=== PATIENT | male | born 1975 | race Caucasian/White ===

== ENCOUNTER 2020-09-02 16:23 | Emergency (ER) | payer OTHER, SELFPAY ==
--- NOTE | 2020-09-02 16:31 | DI.RAD.S_ITS ---
PROCEDURE: XR CHEST 1V INDICATIONS: Possible stroke TECHNIQUE: One view of the chest was acquired. COMPARISON: None. FINDINGS: Surgical changes and devices: None. Lungs and pleura: Lungs are clear. No pleural effusions or pneumothorax. Mediastinum: Mediastinal contours appear normal. Heart size is normal. Bones and chest wall: No suspicious bony lesions. Overlying soft tissues appear unremarkable. IMPRESSION: No acute process. Dictated by: Kenneth Shrestha M.D. on 09/02/2020 at 16:04 Approved by: Kenneth Shrestha M.D. on 09/02/2020 at 16:04
--- NOTE | 2020-09-02 16:31 | DI.CT.S_ITS ---
PROCEDURE: CT HEAD/BRAIN WO CON INDICATIONS: Facial weakness TECHNIQUE: Noncontrast 4.5 mm thick angled axial sections acquired from the foramen magnum to the vertex, with coronal and sagittal reformats. For radiation dose reduction, the following was used: automated exposure control, adjustment of mA and/or kV according to patient size. COMPARISON: None. FINDINGS: Image quality: Excellent. CSF spaces: Basal cisterns are patent. No extra-axial fluid collections. Ventricles are normal in size and shape. Brain: No midline shift. No intracranial masses or hemorrhage. Gee-white matter interface is normal. Skull and face: Calvarium and visualized facial bones are intact, without suspicious lesions. Sinuses: Visualized sinuses and mastoids are clear. IMPRESSION: No acute intracranial abnormality. Dictated by: Kenneth Shrestha M.D. on 09/02/2020 at 16:03 Approved by: Kenneth Shrestha M.D. on 09/02/2020 at 16:03
[2020-09-02 16:42] VITALS: BP 186/81; PULSE 83; RESP 16; O2SAT 99; BMI 27.8
[2020-09-02 16:45] LABS: Add Manual Diff / Slide Review NO; Basophils Absolute Auto 0 /uL (0-100); Basophils Percent Auto 0.7 % (0-2); Eosinophils Absolute Auto 0 /uL (0-450); Eosinophils Percent Auto 0.9 % (2-4); Hemoglobin 16.1 g/dL (13.5-17.5); Lymphocytes Absolute Auto 1500 /uL (1100-4500); Lymphocytes Percent Auto 29.5 % (25-40); Mean Corpuscular HGB Conc 33.6 % (30-36); Mean Corpuscular Hemoglobin 28.3 PG (26-34); Mean Corpuscular Volume 84.3 fL (80-100); Monocytes Absolute Auto 300 /uL (0-900); Neutrophils Absolute Auto 3200 /uL (1500-7000); Neutrophils Percent Auto 62.9 % (50-75); Platelet Count 251 X10^3/uL (150-400); Red Cell Distribution Width 13.6 % (11.6-14.8); White Blood Cell Count 5.2 X10^3/uL (4.5-11.0)
[2020-09-02 16:52] LABS: Prothrombin Time 10.9 SECONDS (10.1-12.7)
[2020-09-02 16:54] LABS: PTT Partial Thromboplastin Tim 36 SECONDS (26.4-36.2)
[2020-09-02 16:56] LABS: Alanine Aminotransferase 39 IU/L (<50); Albumin 4.4 g/dL (3.5-5.0); Albumin Globulin Ratio 1.5 (1.0-2.8); Alkaline Phosphatase 88 U/L (38-126); Aspartate Aminotransferase 33 IU/L (17-59); BUN Creatinine Ratio 11.7 (6-22); Bilirubin Total 0.6 mg/dL (0.2-1.3); Blood Urea Nitrogen 9 mg/dL (9-20); Calcium 8.9 mg/dL (8.4-10.2); Carbon Dioxide 26 mmol/L (22-32); Chloride 101 mmol/L (98-107); Creatine Kinase 57 U/L (55-170); Estimated Glomerular Filt Rate > 60.0 mL/min (>60); Glucose 303 mg/dL (70-100); HEMOLYSIS 16 (0-50); Potassium 3.5 mmol/L (3.4-5.1); Sodium 135 mmol/L (137-145); Total Protein 7.4 g/dL (6.3-8.2)
[2020-09-02 17:01] VITALS: PULSE 88; RESP 20; O2SAT 96
[2020-09-02 17:08] LABS: Troponin I < 0.012 ng/mL (0.01-0.034)
--- NOTE | 2020-09-02 17:17 | ED_ITS ---
HPI - Neuro Symptoms/Deficit General Chief Complaint: Neuro Symptoms/Deficit Stated Complaint: left side of face not working right Time Seen by Provider: 09/02/20 16:41 Source: patient Mode of arrival: Ambulatory Limitations: no limitations History of Present Illness HPI Narrative: Patient is a 44-year-old insulin-dependent diabetic here for evaluation of weakness the left side of his face. He states that the symptoms started approximately 2 days ago. He is unsure what he was doing when the symptoms started. He does not think things have changed or worsened since then. He is have some watering of his left eye. No upper or lower extremity symptoms. No vision changes. No fevers. On Anticoagulants: No Related Data Previous Rx's Medication Instructions Recorded acyclovir 400 mg PO QID 10 Days #40 tab 09/02/20 prednisone 40 mg PO DAILY 7 Days #14 tab 09/02/20 Review of Systems Constitutional Constitutional: Denies chills, Denies fever(s), Denies frequent falls and Denies headache(s) Eyes Eyes: Denies change in vision Comments: Watering left eye ENT Ears, Nose, Mouth, and Throat: Denies vertigo, Denies headache(s), Denies sinus pain and Denies sore throat Cardiovascular Cardiovascular: Denies chest pain, Denies syncope, Denies rapid heart rate, Denies irregular heart rhythm and Denies dyspnea Respiratory Respiratory: Denies cough and Denies dyspnea Gastrointestinal Gastrointestinal: Denies abdominal pain, Denies nausea and Denies vomiting Genitourinary Genitourinary: Denies dysuria Genitourinary: Denies dysuria Musculoskeletal Musculoskeletal: Denies arthralgias and Denies myalgias Integumentary/Breasts Skin/Breast: Denies lesions and Denies rash Neurologic Neurologic: Denies behavioral changes, Denies confusion, Denies vertigo, Denies syncope, Denies frequent falls and Denies headache(s) Comments: Drooping left side of face Psychiatric Psychiatric: Denies behavioral changes and Denies confusion Hematologic/Lymphatic On Anticoagulants: No Allergic/Immunologic Allergic/Immunologic: Denies urticaria Patient History Medical History Diabetes tobacco type: smokeless tobacco alcohol intake frequency: 0-2 drinks per day Substance Use Type: does not use Exam Initial Vital Signs Initial Vital Signs: Vital Signs Pulse Rate 83 09/02/20 16:42 Respiratory Rate 16 09/02/20 16:42 Blood Pressure 186/81 H 09/02/20 16:42 Pulse Oximetry 99 09/02/20 16:42 Const General: cooperative and comfortable Limitations: mental status not altered HENMT Head: normal to inspection and normocephalic Eyes General: appearance normal, both eyes and all related structures Visual Maldonado: normal visual maldonado by confrontation Resp Effort & Inspection: normal respiratory effort Auscultation: clear to auscultation bilaterally Cardio Rate: regular rate Rhythm: regular rhythm GI Inspection: non-distended Palpation: soft Skin Lesions: no lesions Rashes: no rashes Neuro General: patient alert, patient awake and patient oriented x3 Cognition: normal cognition Speech: speech normal Gait: normal gait Motor: muscle tone normal throughout Sensory Exam: no sensory deficits noted Other: Cranial nerve exam is unremarkable except that he does have a complete left-sided facial palsy. Extrem General: normal to inspection, normal exam except as noted and No edema Psych Appearance: grossly normal and well kempt Scores GCS Noemy coma scale verbal response: Orientated [place] coma scale motor response: Obey commands Course Orders Ordered: ED Orders 09/02/20 16:31 CT head/brain wo con Stat XR chest 1V Stat EKG-12 Lead Stat 09/02/20 16:37 Complete Blood Count AUTO DIFF Stat Comprehensive Metabolic Panel Stat Partial Thromboplastin Time Stat Prothrombin Time INR Stat Troponin & CK Cardiac Panel Stat Vital Signs Vital signs: Vital Signs - 8 hr 09/02/20 16:42 09/02/20 17:01 09/02/20 17:30 Pulse Rate 83 88 86 Respiratory Rate 16 20 18 Blood Pressure 186/81 H 143/89 H Pulse Oximetry 99 96 96 MDM - Neuro Symptoms/Deficit Lab Data Attestation: I reviewed the patient's lab results. Result diagrams: 09/02/20 16:37 09/02/20 16:37 Labs: Lab Results 09/02/20 09/02/20 09/02/20 Range/Units 16:37 16:37 16:37 WBC 5.2 (4.5-11.0) X10^3/uL RBC 5.70 (4.5-5.9) X10^6/uL Hgb 16.1 (13.5-17.5) g/dL Hct 48.0 (41-53) % MCV 84.3 (80-100) fL MCH 28.3 (26-34) PG MCHC 33.6 (30-36) % RDW 13.6 (11.6-14.8) % Plt Count 251 (150-400) X10^3/uL Neut % (Auto) 62.9 (50-75) % Lymph % (Auto) 29.5 (25-40) % [place] % (Auto) 6.0 (3-14) % Eos % (Auto) 0.9 L (2-4) % Baso % (Auto) 0.7 (0-2) % Neut # (Auto) 3200 (1235-8814) /uL Lymph # (Auto) 1500 (1663-1423) /uL [place] # (Auto) 300 (0-900) /uL Eos # (Auto) 0 (0-450) /uL Baso # (Auto) 0 (0-100) /uL PT 10.9 (10.1-12.7) SECONDS INR 1.0 (0.9-1.3) APTT 36 (26.4-36.2) SECONDS Sodium 135 L (137-145) mmol/L Potassium 3.5 (3.4-5.1) mmol/L Chloride 101 (98-107) mmol/L Carbon Dioxide 26 (22-32) mmol/L BUN 9 (9-20) mg/dL Creatinine 0.77 (0.66-1.25) mg/dL Estimated GFR > 60.0 (>60) mL/min BUN/Creatinine Ratio 11.7 (6-22) Glucose 303 H (70-100) mg/dL Calcium 8.9 (8.4-10.2) mg/dL Total Bilirubin 0.6 (0.2-1.3) mg/dL AST 33 (17-59) IU/L ALT 39 (<50) IU/L Alkaline Phosphatase 88 (38-126) U/L Total Creatine Kinase 57 (55-170) U/L CK-MB (CK-2) TNP CK-MB (CK-2) Rel Index TNP Troponin I < 0.012 (0.01-0.034) ng/mL Total Protein 7.4 (6.3-8.2) g/dL Albumin 4.4 (3.5-5.0) g/dL Globulin 3.0 (1.7-4.1) g/dL Albumin/Globulin Ratio 1.5 (1.0-2.8) Point of Care Testing Glucose POC 256 Imaging Data Chest x-ray: Radiologist's Impression: [address] [id number] ReportSigned Patient: Tavo Montalvo IMR#: [id number]: 1975Acct:[id number]/Sex: 44 / MDate of Service: 09/02/20Loc: EDAccession Number: [id number] Procedure: XR chest 1V Ordering Provider: Conrad Brady D.O. PROCEDURE: XR CHEST 1V INDICATIONS: Possible stroke TECHNIQUE: One view of the chest was acquired. COMPARISON: None. FINDINGS: Surgical changes and devices: None. Lungs and pleura: Lungs are clear. No pleural effusions or pneumothorax. Mediastinum: Mediastinal contours appear normal. Heart size is normal. Bones and chest wall: No suspicious bony lesions. Overlying soft tissues appear unremarkable. IMPRESSION: No acute process. Dictated by: Kenneth Shrestha M.D. on 09/02/2020 at 16:04 Approved by: Kenneth Shrestha M.D. on 09/02/2020 at 16:04 CT scan - head: Radiologist's Impression: [address] [id number] Scan ReportSigned Patient: Tavo Montalvo IMR#: [id number]: 1975Acct:[id number]/Sex: 44 / MDate of Service: 09/02/20Loc: EDAccession Number: [id number] Procedure: CT head/brain wo con Ordering Provider: Conrad Brady D.O. PROCEDURE: CT HEAD/BRAIN WO CON INDICATIONS: Facial weakness TECHNIQUE: Noncontrast 4.5 mm thick angled axial sections acquired from the foramen magnum to the vertex, with coronal and sagittal reformats. For radiation dose reduction, the following was used: automated exposure control, adjustment of mA and/or kV according to patient size. COMPARISON: None. FINDINGS: Image quality: Excellent. CSF spaces: Basal cisterns are patent. No extra-axial fluid collections. Ventricles are normal in size and shape. Brain: No midline shift. No intracranial masses or hemorrhage. Gee-white matter interface is normal. Skull and face: Calvarium and visualized facial bones are intact, without suspicious lesions. Sinuses: Visualized sinuses and mastoids are clear. IMPRESSION: No acute intracranial abnormality. Dictated by: Kenneth Shrestha M.D. on 09/02/2020 at 16:03 Approved by: Kenneth Shrestha M.D. on 09/02/2020 at 16:03 ECG Data Attestation: I personally reviewed and interpreted this ECG as follows: Prior ECG tracings: not available for review Interpretation: Sinus rhythm Ventricular rate 87 Normal axis Normal QRS Normal QTC No ST T wave changes MDM Narrative Medical decision making narrative: Head CT an EKG and labs are unremarkable. 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 The watering of the left eye is because he cannot close his left eye completely. He also states that he does have some difficulty with chewing the left side of his mouth. He has no sensory issues. Considered CVA however given his presentation of feel the Villalba's palsy is more likely. He is an insulin-dependent diabetic. We did discuss that placing him on steroids will cause his blood sugar to be elevated. Because of this he was given 40 mg a day of prednisone instead of 60. He was instructed he need to check his blood sugars on a daily basis and adjust his insulin accordingly. He did expressed understanding of this. Also send home on antivirals. He was given return precautions and follow-up instructions. We did discuss importance of keeping his left eye moist and potentially even using tape at night. He expressed understanding and agreement. 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 The current recommendations for the treatment of this includes placing given steroids. The unfortunate issue is that because you have diabetes this will cause your blood sugars to be elevated. You do need to check your blood sugar frequently and dose your insulin regiment accordingly. There were also some recommendations stated that we should start you on antiviral therapy. These medications were electronically transmitted to your stated pharmacy. Take them as directed. Be sure to keep your left eye moist with either eye drops or the tape like we gale perales. Return to the emergency department for any new or worsening symptoms Prescriptions: New prednisone 20 mg tablet 40 mg PO DAILY 7 Days Qty: 14 RF: 0 acyclovir 400 mg tablet 400 mg PO QID 10 Days Qty: 40 RF: 0 Referrals: Roshan Ferguson MD [Primary Care Provider] -
[2020-09-02 17:30] VITALS: BP 143/89; PULSE 86; RESP 18; O2SAT 96
== END 2020-09-02 17:53 | disposition home or self-care (01) ==
PROVIDERS: Emergency Provider Emergency Medicine; Family Provider Family Medicine; PCP Family Medicine
DX: G51.0 Bell's palsy (principal); E11.9 Type 2 diabetes mellitus without complications; Z79.4 Long term (current) use of insulin
CPT/HCPCS: 36415; 70450; 71045; 80053; 82550; 82962; 84484; 85025; 85610; 85730; 93005; 99284